=== PATIENT | male | born 1980 | race Caucasian/White ===

== ENCOUNTER → 2016-10-17 | Outpatient (CLI) | payer BC ==
[2016-10-17 20:01] LABS: Hepatitis B Surface Ag Index 0.06
[2016-10-17 20:07] LABS: Hepatitis B Core IgM Index 0.04
[2016-10-17 20:18] LABS: Hepatitis C Virus IgG Index 0.06
[2016-10-17 20:19] LABS: Hepatitis C Virus IgG Ab Negative (Negative)
[2016-10-17 20:29] LABS: Rheumatoid Factor, Qnt <9 IU/mL (<12)
[2016-10-18 01:16] LABS: ANA w/Reflex to Titer NEGATIVE (NEGATIVE)
[2016-10-19 06:26] LABS: EBV - EBNA (IgG) >600.0 U/mL (<18.0); EBV - VCA (IgG) >750.0 U/mL (<18.0); EBV - VCA IgM 10.2 U/mL (<36.0)
[2016-10-19 07:55] LABS: HIV-1/HIV-2 Ab Screen NONREAC (NON REAC)
[2016-10-21 14:49] LABS: C-ANCA <1:20 Titer (<1:20); P-ANCA <1:20 Titer (<1:20)
== END | disposition home or self-care (01) ==
LOC: LABMAIN 18:14
PROVIDERS: ATTEND Internal Medicine Infectious Disease
DX: K13.79 Other lesions of oral mucosa (principal)
CPT/HCPCS: 36415; 80074; 85652; 86038; 86255; 86431; 86644; 86645; 86663; 86664; 86665; 87389